=== PATIENT | female | born 1955 | race Caucasian/White ===

== ENCOUNTER → 2021-09-12 | Outpatient (CLI) | payer MEDICARE ==
[~2021-09-12] MED LIST: ASPI325T11 PO; CETI10TA74 PO; CHRM1TAB PO; CRAN400C PO; CRESTOR5 MG PO; DICY20TA PO; DULA1.5P SQ; ESTR2TAB3 PO; FLUC200T4 PO; GABA600T7 PO; GLIM4TAB8 PO; HYDR-2761 PO; MAGN250T10 PO; METF500T16 PO; NAPR220C4 PO; PIOG15TA42 PO; POTA10TA12 PO; VITA1CAP PO; ZINC50TA39 PO
[2021-09-12 13:21] LABS: BASO # 0.1 x10^3/uL (0.0-0.2); BASO % 1 % (0-3); EOS # 0.1 x10^3/uL (0.0-0.7); EOS % 1 % (0-3); HEMATOCRIT 42.4 % (36.0-47.0); HEMOGLOBIN 14.3 g/dL (12.0-15.5); LYMPH # 2.2 x10^3/uL (1.0-4.8); LYMPH % 30 % (24-48); MEAN CORPUSCULAR HEMOGLOBIN 31 pg (25-35); MEAN CORPUSCULAR HGB CONC 34 g/dL (31-37); MEAN CORPUSCULAR VOLUME 93 fL (79-100); MONO # 0.5 x10^3/uL (0.0-1.1); MONO % 6 % (0-9); NEUT # 4.6 x10^3/uL (1.8-7.7); NEUT % 62 % (31-73); PLATELET COUNT 256 x10^3/uL (140-400); RED BLOOD COUNT 4.56 x10^6/uL (3.50-5.40); RED CELL DISTRIBUTION WIDTH 13.1 % (11.5-14.5); WHITE BLOOD COUNT 7.4 x10^3/uL (4.0-11.0)
[2021-09-12 13:34] LABS: ALBUMIN 4.1 g/dL (3.4-5.0); CALCIUM 9.2 mg/dL (8.5-10.1); CREATININE 0.7 mg/dL (0.6-1.0); GFR 83.7; POTASSIUM 3.9 mmol/L (3.5-5.1)
--- NOTE | 2021-09-12 14:12 | EKG ---
[facility] [address] [place] [address] Test Date: 2021-09-12 Test Time: 14:06:51 Pat Name: MYKEL TORRES Department: Room: Gender: F Data Warehouse Specialist: : [id number] Requested By: JOSÉ RAMOS Order Number: [id number] Reading MD: Kirt Fox Measurements Intervals [place] Rate: 71 P: 39 OR: 172 QRS: -42 QRSD: 90 T: 65 QT: 382 QTc: 415 Interpretive Statements SINUS RHYTHM ABNORMAL LEFT AXIS DEVIATION T ABNORMALITY IN HIGH LATERAL LEADS ABNORMAL ECG RI6.01 No previous ECG available for comparison Electronically Signed On 09-14-2021 12:46:53 HITCH TECHNICIAN by Kirt Fox
[2021-09-13 01:13] LABS: HEMOGLOBIN A1C 9.4 % (4.8-5.6)
--- NOTE | 2021-09-13 11:30 | RAD ---
EXAM: XR CHEST 2V 09/12/2021 2:14 PM CLINICAL INDICATION: Preoperative. COMPARISON: None TECHNIQUE: PA and lateral views of the chest FINDINGS: The heart and mediastinum are normal. Lungs are well-expanded and clear. No consolidatio n, pleural effusion, or pneumothorax. Pulmonary vascularity is normal. There is multilevel degenerat debbie disc disease in the thoracic and lumbar spine. IMPRESSION: No acute cardiopulmonary abnormality. Electronically signed by: Kathleen Ortiz MD (09/13/2021 11:28 AM) [id number]
== END ==
LOC: SURGPAT 12:37
PROVIDERS: ATTEND Orthopaedic Surgery
DX: Z01.818 Encounter for other preprocedural examination (principal); R94.31 Abnormal electrocardiogram [ECG] [EKG]; M17.12 Unilateral primary osteoarthritis, left knee; M51.35 Other intervertebral disc degeneration, thoracolumbar region
CPT/HCPCS: 36415; 71046; 80048; 82040; 82306; 83036; 85025; 85610; 85651; 85730; 87641; 93005

== ENCOUNTER → 2022-01-23 | Outpatient (CLI) | payer MEDICARE ==
[~2022-01-23] MED LIST changes: +ASPI325T8 PO; -FLUC200T4 PO; +FLUC200T6 PO; +HUM100VI5 SQ; +ONDA4TAB12 PO; +OXYC5TAB88 PO
[2022-01-23 13:43] LABS: BASO # 0.1 x10^3/uL (0.0-0.2); BASO % 1 % (0-3); EOS # 0.2 x10^3/uL (0.0-0.7); EOS % 2 % (0-3); HEMATOCRIT 38.6 % (36.0-47.0); LYMPH % 29 % (24-48); MEAN CORPUSCULAR HEMOGLOBIN 31 pg (25-35); MEAN CORPUSCULAR HGB CONC 34 g/dL (31-37); MEAN CORPUSCULAR VOLUME 93 fL (79-100); MONO # 0.5 x10^3/uL (0.0-1.1); MONO % 7 % (0-9); NEUT # 4.3 x10^3/uL (1.8-7.7); NEUT % 61 % (31-73); PLATELET COUNT 249 x10^3/uL (140-400); RED BLOOD COUNT 4.15 x10^6/uL (3.50-5.40); RED CELL DISTRIBUTION WIDTH 13.6 % (11.5-14.5)
[2022-01-23 13:49] LABS: ALBUMIN 3.6 g/dL (3.4-5.0); CALCIUM 9.3 mg/dL (8.5-10.1); CREATININE 0.9 mg/dL (0.6-1.0); GFR 62.5
[2022-01-23 13:52] LABS: PROTHROMBIN TIME PATIENT 13.5 SEC (11.7-14.0)
== END ==
LOC: SURGPAT 12:43
PROVIDERS: ATTEND Orthopaedic Surgery
DX: Z01.812 Encounter for preprocedural laboratory examination (principal); M17.12 Unilateral primary osteoarthritis, left knee; M85.80 Other specified disorders of bone density and structure, unspecified site; I10 Essential (primary) hypertension; R06.02 Shortness of breath
CPT/HCPCS: 36415; 80048; 82040; 82306; 85025; 85610; 85651; 85730; 87641

== ENCOUNTER 2022-02-12 05:59 | Inpatient (IN) | payer MEDICARE ==
[2022-01-23 13:09] VITALS: BP 133/69
[~2022-02-12] VITALS: Ht 170.2 cm; Wt 96.0 kg
[2022-02-12] VITALS (12 sets, daily range): BP systolic 113–163; BP diastolic 59–92
[~2022-02-12 05:59] MED LIST changes: -ASPI325T8 PO; -ONDA4TAB12 PO; -OXYC5TAB88 PO
[2022-02-12] MEDS ORDERED: MORPHINE SULFATE 2 MG/ML INJ. IVP PRN (06:00)
[2022-02-12] MEDS ORDERED: IV RINGERS,LACTATED 1000ML 1,000 ML IV SCH (06:00)
[2022-02-12] MEDS ORDERED: TRANEXAMIC ACID 1,000 MG in IV NS 50ML -- 1ST BAG INJ ONE (06:00)
[2022-02-12] MEDS ORDERED: GABAPENTIN 300 MG CAPSULE. PO PRN (06:00)
[2022-02-12] MEDS ORDERED: PROCHLORPERAZINE 10 MG/2 ML VIAL. IVP PRN (06:00)
[2022-02-12] MEDS ORDERED: MORPHINE SULFATE 5 MG, KETOROLAC 30MG VIAL 30 MG, ROPIVacaine 0.5% PF 60 ML, EPINEPHrin... INT ART ONE (06:00)
[2022-02-12] MEDS ORDERED: MELOXICAM 7.5 MG TABLET PO PRN (06:00)
[2022-02-12] MEDS ORDERED: ACETAMINOPHEN 500 MG TABLET PO PRN (06:00)
[2022-02-12] MEDS ORDERED: fentaNYL PF VIAL 100 MCG/2 ML VIAL IVP PRN ×2 (06:00)
[2022-02-12] MEDS ORDERED: PROPOFOL 10 MG/ML (20ML) VIAL. IV ONE (06:38)
[2022-02-12] MEDS ORDERED: ROCURONIUM 50 MG/5 ML VIAL. ONE (06:40)
[2022-02-12] MEDS ORDERED: SCOPOLAMINE 1.5MG PATCH. TD ONE (06:45)
[2022-02-12] MEDS ORDERED: fentaNYL PF VIAL 100 MCG/2 ML VIAL ONE (06:47)
[2022-02-12] MEDS ORDERED: DEXAMETHASONE SOD PHOS 4 MG/ML VIAL ONE (06:54)
[2022-02-12] MEDS ORDERED: ONDANSETRON PF 4 MG/2 ML VIAL. ONE (06:54)
[2022-02-12] MEDS: INSULIN LISPRO 100 UNIT/ML 3ML VIAL for OP,RR ONLY. SQ PRN ×2 (07:06→09:46)
[2022-02-12] MEDS ORDERED: TRANEXAMIC ACID in NS IVPB 100 ML ONE (07:07)
[2022-02-12] MEDS ORDERED: INSULIN LISPRO 100 UNIT/ML 3ML VIAL for OP,RR ONLY. SQ ONE (07:10)
[2022-02-12] MEDS ORDERED: TRANEXAMIC ACID in NS IVPB 50 ML ONE (07:45)
[2022-02-12] MEDS ORDERED: SUGAMMADEX SODIUM 200 MG/2 ML VIAL. IVP ONE (08:00)
[2022-02-12] MEDS ORDERED: TRANEXAMIC ACID 1,000 MG in IV NS 50ML -- 2ND BAG INJ ONE (08:00)
[2022-02-12] MEDS ORDERED: HYDROmorphone 2 MG/ML INJ. ONE ×2 (08:05→09:24)
--- NOTE | 2022-02-12 09:04 | PDOC4 ---
OPERATIVE NOTE Date: Date: February 12, 2022 Pre-Op Diagnosis: 1. 66-year-old female severe DJD left knee Post-Op Diagnosis: 1. 66-year-old female severe DJD left knee 2. Status post left primary total knee arthroplasty Procedure Performed: 1. Primary left total knee arthroplasty Surgeon: Bennett Anesthesia Type: General Blood Loss: 50 cc Specimans Obtained: Products of left total knee arthroplasty. Complications: Patient tolerated the procedure well without any apparent intraoperative complications. Operative Note: See dictation TRISTEN LI February 12, 2022 09:04
[2022-02-12] MEDS ORDERED: 0.9 % SODIUM CHLORIDE 10 ML DISP.SYRIN. IV PRN (09:15)
[2022-02-12] MEDS: IV RINGERS,LACTATED 1000ML 1,000 ML IV SCH ×2 (09:15→22:35)
[2022-02-12] MEDS ORDERED: CALCIUM CARBONATE 500 MG TAB.CHEW PO PRN (09:15)
[2022-02-12] MEDS ORDERED: DEXTROSE 50% 25 GM / 50ML DISP.SYRIN. IV PRN (09:15)
[2022-02-12] MEDS: HYDROmorphone 2 MG/ML INJ. IVP PRN ×2 (09:28→10:01)
--- NOTE | 2022-02-12 09:43 | RAD ---
EXAM: Left knee, 2 views. HISTORY: Arthroplasty. COMPARISON: 08/30/2021 FINDINGS: 2 views of the left knee are obtained. There is a left knee arthroplasty in expected positi on. There is joint fluid and soft tissue gas due to recent surgery. IMPRESSION: Left knee arthroplasty in expected position, with surrounding soft tissue changes due to recent surgery. Electronically signed by: Amisha Donahue MD (02/12/2022 9:40 AM) [id number]
--- NOTE | 2022-02-12 10:30 | NUR ---
received from recovery. she is drowsy but responsive to commands. she has good movement and sensation bilateral lower extremities. left foot is weaker than right. dressing is clean dry and intact. son at bedside. became nauseated. wants ice chips.
[2022-02-12] MEDS: ONDANSETRON PF 4 MG/2 ML VIAL. IVP SCH ×2 (11:06→16:32)
[2022-02-12] MEDS: ONDANSETRON ODT 4 MG TAB.RAPDIS. PO SCH ×2 (11:10→11:26)
[2022-02-12] MEDS: DICYCLOMINE HCL 10 MG CAPSULE PO SCH ×3 (13:00→22:08)
--- NOTE | 2022-02-12 16:16 | OP ---
DATE OF SURGERY: 02/12/2022 PREOPERATIVE DIAGNOSIS: Severe degenerative joint disease, left knee. POSTOPERATIVE DIAGNOSIS: Severe degenerative joint disease, left knee. PROCEDURE: Left total knee arthroplasty. SURGEON: Adalberto Guajardo Jr, DO. SURGICAL NURSE PRACTITIONER: ERIK Maher. ANESTHESIA: General. COMPLICATIONS: None. ESTIMATED BLOOD LOSS: 50 mL. DESCRIPTION OF PROCEDURE: The patient was taken to the operative suite, given a general anesthetic. Left lower extremity was then prepped and draped in a sterile fashion. Incision was made through skin and subcutaneous tissues down to the extensor mechanism. Superficial bleeding was coagulated using a Bovie knife. A medial parapatellar incision was then made. After exposure, there was noted to be severe degenerative joint disease in all compartments of the knee. The patella was then everted, measured and cut to the appropriate size, which was a 29. This was measured appropriately. The drill holes were made through the guide for the component. The knee was then taken into a flexed position. Retractors were placed medially and laterally. The F1 guide was then placed on the distal femur. A drill was used for the site for the cartilage removal and then using a curved curette, the cartilage was removed from the distal femur and then the F2 guide was placed in this position. The drill was placed through the F2 guide on the medial and lateral femoral condyles and held with pins. This was also held for the distal cut on the proximal aspect of the femur anteriorly with 2 drill pins followed by a locking pin as well. The cut was then made in the distal femur. This was noted to be a good flush cut. The pins were then removed from this components trial and then the pins were placed in the femoral sites on the medial and lateral femoral condyles. The next guide was then placed on the distal femur and held flush well. Two more pins were placed and then the anterior and posterior chamfer cuts and drill holes were made at this point. Then, these guides were removed. The final femoral guide was then put in place and held appropriately where the finishing cuts were made along the femoral condyle medially and laterally and then this was removed. Attention was then directed to the tibia. The remnants of the medial and lateral menisci as well as the ACL were removed. The PCL remained completely intact at this point. After retracting medially, laterally and posteriorly, the tibial guide was placed in appropriate position and again, a curette was used to remove the remaining cartilage on the proximal tibia. Tibial guide was then held with pins, two straight pins and then one locking pin and then the cut was made for the tibia. This was released of its soft tissue and removed in its entirety and the trials were placed on the femur and tibia with a 4A tibial tray insert. As this was trialled, this was noted to be very stable throughout the arc of motion. This was stable in flexion and equal in flexion and extension throughout the arc of motion. There was no instability noted at any point. This was marked for rotation on the tibial side of the joint and after this was held with pins, the drill and the keel were placed the appropriate depth for this. This was then copiously irrigated on the back table while cement was being mixed. After this was suctioned dry, cement was placed on cut surfaces. The tibia was impacted first, followed by the femur. This was held with the trial polyethylene in extension until hardening of cement and cement was placed on the patella, which was held with a patellar clamp until hardening of cement. After excess cement was then removed, this was taken through motion. This was noted to be the best stable situation; therefore, the trials were removed and the actual medial 6 was placed and the lateral A was placed at this point. This was noted again to be stable; therefore, tourniquet was deflated. No excessive bleeding was noted. The medial parapatellar incision was then closed using the running locking barbed suture. Then, this was taken through range of motion and noted to be sealed off completely. The superficial tissues and skin were reapproximated. Sterile dressing was applied. This was all done after local was placed within the depths of the capsular region of the knee. The patient was then taken from the operative bed to the postoperative bed, taken to the PACU in stable condition. PARKER/VICTORIA DR: Priscila TID: [id number]
[2022-02-12] MEDS: SENNOSIDES/DOCUSATE 8.6/50MG TABLET. PO SCH (16:28)
[2022-02-12] MEDS: GABAPENTIN 100 MG CAPSULE. PO SCH ×2 (16:28→22:08)
[2022-02-12] MEDS: metFORMIN 500 MG TABLET PO SCH (16:28)
[2022-02-12] MEDS: oxyCODONE IR 5 MG TABLET PO PRN ×2 (16:44→22:09)
[2022-02-12] MEDS: ASPIRIN 325 MG TABLET PO SCH (22:08)
[2022-02-12] MEDS: ATORVASTATIN CALCIUM 40 MG TABLET. PO SCH (22:08)
[2022-02-12] MEDS: INSULIN NPH/REG HUM 70/30 300 UNITS/3 ML VIAL. SQ SCH (22:10)
[2022-02-13] MEDS: ONDANSETRON ODT 4 MG TAB.RAPDIS. PO SCH ×2 (00:10→05:14)
[2022-02-13] MEDS: ONDANSETRON PF 4 MG/2 ML VIAL. IVP SCH ×2 (00:10→05:14)
[2022-02-13 03:00] VITALS: BP 95/53
[2022-02-13] MEDS: oxyCODONE IR 5 MG TABLET PO PRN ×5 (03:00→21:38)
[2022-02-13] MEDS: IV RINGERS,LACTATED 1000ML 1,000 ML IV SCH ×2 (04:33→11:55)
[2022-02-13] MEDS ORDERED: MAGNESIUM HYDROXIDE 2,400 MG/30 ML ORAL.SUSP. PO PRN (06:00)
[2022-02-13] MEDS ORDERED: GABAPENTIN 100 MG CAPSULE. PO SCH (06:00)
[2022-02-13 06:31] VITALS: BP 106/64
--- NOTE | 2022-02-13 07:51 | PDOC1 ---
History and Physical Date of Service: DOS: DATE: 02/13/22 TIME: 07:51 Allergies: Allergies: Coded Allergies: sodium hypochlorite solution (Verified Allergy, Severe, CHLORINE = SHORTNESS OF AIR, 02/12/22) erythromycin base (Verified Allergy, Intermediate, Nausea and Vomiting, 02/12/22) iron (Verified Allergy, Intermediate, Hives, 02/12/22) diarrhea Current Medications: Current Medications Current Medications Fentanyl Citrate (Fentanyl 2ml Vial) 25 mcg PRN Q5MIN PRN IVP MILD PAIN 1-3; Start 02/12/22 at 06:00; Stop 02/13/22 at 05:59; Status DC Fentanyl Citrate (Fentanyl 2ml Vial) 50 mcg PRN Q5MIN PRN IVP MODERATE PAIN 4- 6; Start 02/12/22 at 06:00; Stop 02/13/22 at 05:59; Status DC Morphine Sulfate (Morphine Sulfate) 1 mg PRN Q10MIN PRN IVP SEVERE PAIN 7-10; Start 02/12/22 at 06:00; Stop 02/13/22 at 05:59; Status DC Ringer's Solution 1,000 ml @ 30 mls/hr Q24H IV Last administered on 02/12/22at 06:59; Start 02/12/22 at 06:00; Stop 02/12/22 at 17:59; Status DC Hydromorphone HCl (Dilaudid) 0.5 mg PRN Q10MIN PRN IVP SEVERE PAIN 7-10, 2nd CHOICE Last administered on 02/12/22at 10:01; Start 02/12/22 at 06:00; Stop 2 at 05:59; Status DC Prochlorperazine Edisylate (Compazine) 5 mg PACU PRN PRN IVP NAUSEA, MRX1; Start 02/12/22 at 06:00; Stop 02/13/22 at 05:59; Status DC Meloxicam (Mobic) 15 mg 1X PREOP PRN PO PRIOR TO PROCEDURE Last administered on 02/12/22at 07:00; Start 02/12/22 at 06:00; Stop 02/12/22 at 18:00; Status DC Gabapentin (Neurontin) 600 mg 1X PREOP PRN PO PRIOR TO PROCEDURE Last administered on 02/12/22at 07:00; Start 02/12/22 at 06:00; Stop 02/12/22 at 18:00; Status DC Acetaminophen (Tylenol) 1,000 mg 1X PREOP PRN PO PRIOR TO PROCEDURE Last administered on 02/12/22at 07:00; Start 02/12/22 at 06:00; Stop 02/12/22 at 18:00; Status DC Cefazolin Sodium/ Dextrose 50 ml @ 100 mls/hr 1X PREOP PRN IV PRIOR TO PROCEDURE; Start 02/12/22 at 06:00; Stop 02/12/22 at 18:00; Status DC Morphine Sulfate 5 mg/Ketorolac Tromethamine 30 mg/Ropivacaine 60 ml/Epinephrine HCl 0.5 mg/Sodium Chloride 62 ml @ 62 mls/hr 1X PERIOP ONCE INT ART Last administered on 02/12/22at 08:06; Start 02/12/22 at 06:00; Stop 02/12/22 at 06:59; Status DC Tranexamic Acid 50 ml @ 50 mls/hr 1X PERIOP ONCE INJ ; Start 02/12/22 at 06:00; Stop 02/12/22 at 06:59; Status DC Tranexamic Acid 50 ml @ 50 mls/hr 1X PERIOP ONCE INJ Last administered on 02/12/22at 08:07; Start 02/12/22 at 08:00; Stop 02/12/22 at 08:59; Status DC Insulin Human Lispro (HumaLOG VIAL for OP,RR ONLY) 0-10 units PRN Q1HR PRN SQ PER PROTOCOL Last administered on 02/12/22at 09:46; Start 02/12/22 at 06:45; Stop 02/13/22 at 06:44; Status DC Propofol (Diprivan) 200 mg STK-MED ONCE IV ; Start 02/12/22 at 06:38; Stop 02/12/22 at 06:39; Status DC Rocuronium Union (Zemuron) 50 mg STK-MED ONCE .ROUTE ; Start 02/12/22 at 06:40; Stop 02/12/22 at 06:41; Status DC Scopolamine (Transderm-Scop) 1 patch 1X ONCE TD Last administered on 02/12/22at 07:00; Start 02/12/22 at 06:45; Stop 02/12/22 at 06:54; Status DC Fentanyl Citrate (Fentanyl 2ml Vial) 100 mcg STK-MED ONCE .ROUTE ; Start 02/12/22 at 06:47; Stop 02/12/22 at 06:48; Status DC Ondansetron HCl (Zofran) 4 mg STK-MED ONCE .ROUTE ; Start 02/12/22 at 06:54; Stop 02/12/22 at 06:54; Status DC Dexamethasone Sodium Phosphate (Decadron) 4 mg STK-MED ONCE .ROUTE ; Start 02/12/22 at 06:54; Stop 02/12/22 at 06:54; Status DC Tranexamic Acid 100 ml @ As Directed STK-MED ONCE .ROUTE ; Start 02/12/22 at 07:07; Stop 02/12/22 at 07:07; Status DC Sugammadex Sodium (Bridion) 200 mg 1X ONCE IVP ; Start 02/12/22 at 08:00; Stop 02/12/22 at 08:01; Status DC Tranexamic Acid 50 ml @ As Directed STK-MED ONCE .ROUTE ; Start 02/12/22 at 07:45; Stop 02/12/22 at 07:46; Status DC Hydromorphone HCl (Dilaudid) 2 mg STK-MED ONCE .ROUTE ; Start 02/12/22 at 08:05; Stop 02/12/22 at 08:05; Status DC Morphine Sulfate (Morphine Sulfate) 2 mg PRN Q1HR PRN IVP PAIN-SEE COMMENTS; Start 02/12/22 at 09:15 Senna/Docusate Sodium (Senna Plus) 1 tab DAILY PO Last administered on 02/12/22at 16:28; Start 02/12/22 at 12:00 Magnesium Hydroxide (Milk Of Magnesia) 2,400 mg 1X PRN PRN PO CONSTIPATION; Start 02/13/22 at 06:00; Stop 02/14/22 at 05:59 Bisacodyl (Dulcolax Supp) 10 mg 1X PRN PRN [place] CONSTIPATION; Start 02/13/22 at 16:00; Stop 02/14/22 at 15:59 Calcium Carbonate/ Glycine (Tums) 500 mg PRN QID PRN PO INDIGESTION; Start 02/12/22 at 09:15 Sodium Chloride (Normal Saline Flush) 10 ml QSHIFT PRN IV AFTER MEDS AND BLOOD DRAWS; Start 02/12/22 at 09:15 Acetaminophen (Tylenol) 1,000 mg Q6H PO ; Start 02/13/22 at 09:00 Gabapentin (Neurontin) 100 mg Q8HRS PO ; Start 02/13/22 at 06:00; Status Cancel Ondansetron HCl (Zofran) 4 mg Q6HRS IVP Last administered on 02/12/22at 16:32; Start 02/12/22 at 12:00; Stop 02/13/22 at 06:01; Status DC Ondansetron HCl (Zofran Odt) 4 mg Q6HRS PO ; Start 02/12/22 at 12:00; Stop 02/13/22 at 06:01; Status DC Oxycodone HCl (Roxicodone) 5 mg PRN Q4HRS PRN PO Pain score 4-6 Last administered on 02/13/22at 03:00; Start 02/12/22 at 09:15 Dextrose (Dextrose 50%-Water Syringe) 12.5 gm PRN Q15MIN PRN IV SEE COMMENTS; Start 02/12/22 at 09:15 Cefazolin Sodium/ Dextrose 50 ml @ 100 mls/hr Q6H IV Last administered on 02/13/22at 04:07; Start 02/12/22 at 13:00; Stop 02/13/22 at 04:29; Status DC Ringer's Solution 1,000 ml @ 75 mls/hr [id number] IV Last administered on 02/13/22at 04:33; Start 02/12/22 at 09:15 Aspirin (Miryam Aspirin) 325 mg BID PO Last administered on 02/12/22at 22:08; Start 02/12/22 at 21:00 Hydromorphone HCl (Dilaudid) 2 mg STK-MED ONCE .ROUTE ; Start 02/12/22 at 09:24; Stop 02/12/22 at 09:25; Status DC Aspirin (Ecotrin) 325 mg DAILY PO ; Start 02/13/22 at 09:00 Cetirizine HCl (ZyrTEC) 10 mg DAILY PO ; Start 02/13/22 at 09:00 Insulin Human Isoph/Insulin Regular (HumuLIN 70-30 VIAL) 25 units BID SQ Last administered on 02/12/22at 22:10; Start 02/12/22 at 21:00 Metformin HCl (Glucophage) 500 mg BIDWMEALS PO Last administered on 02/12/22at 16:28; Start 02/12/22 at 17:00 Pioglitazone HCl (Actos) 15 mg DAILY PO ; Start 02/13/22 at 09:00 Potassium Chloride (Klor-Con) 10 meq DAILY PO ; Start 02/13/22 at 09:00 Dicyclomine HCl (Bentyl) 20 mg QID PO Last administered on 02/12/22at 22:08; Start 02/12/22 at 13:00 Estradiol (Estrace) 2 mg DAILY PO ; Start 02/13/22 at 09:00 Gabapentin (Neurontin) 100 mg TID PO Last administered on 02/12/22at 22:08; Start 02/12/22 at 14:00 Glimepiride (Amaryl) 4 mg DAILY PO ; Start 02/13/22 at 09:00 Magnesium Oxide (Magnesium Oxide) 400 mg DAILY PO ; Start 02/13/22 at 09:00 Atorvastatin Calcium (Lipitor) 40 mg QHS PO Last administered on 02/12/22at 22:08; Start 02/12/22 at 21:00 Vitamin B Complex (Deshawn B) 1 tab DAILY PO ; Start 02/13/22 at 09:00 Cefazolin Sodium/ Dextrose 50 ml @ 100 mls/hr 1X ONCE IV Last administered on 02/12/22at 16:00; Start 02/12/22 at 16:00; Stop 02/12/22 at 16:29; Status DC Active Scripts Active Reported Novolin 70-30 100 Unit/Ml Vial (Hum Insulin Nph/Reg Insulin Hm) 100 Unit/1 Ml Vial 25 Unit SQ BID Hydrocodone-Apap 5-325 (Hydrocodone Bit/Acetaminophen) 1 Tab Tablet 1 Tab PO PRN Q6HRS PRN Crestor (Rosuvastatin Calcium) 5 Mg Tablet 10 Mg PO HS Actos (Pioglitazone Hcl) 15 Mg Tablet 1 Tab PO DAILY 30 Days Metformin Hcl 500 Mg Tablet 500 Mg PO BIDWMEALS Estradiol 2 Mg Tablet 1 Tab PO DAILY Glimepiride 4 Mg Tablet 1 Tab PO DAILY Gabapentin 600 Mg Tablet 100 Mg PO TID Fluconazole 200 Mg Tablet 1 Tab PO Q3DAYS Dicyclomine Hcl 20 Mg Tablet 1 Tab PO QID Zyrtec (Cetirizine Hcl) 10 Mg Tablet 1 Tab PO DAILY Zinc 50 Mg Tablet 1 Tab PO DAILY 30 Days Klor-Con 10 (Potassium Chloride) 10 Meq Tablet.er 1 Tab PO DAILY 30 Days Magnesium (Magnesium Oxide) 250 Mg Tablet 250 Mg PO DAILY Cranberry 400 Mg Capsule 4,200 Mg PO DAILY Vitamin B Complex 1 Each Capsule 1 Cap PO DAILY Apple Cider Vinegar Plus Tb (Chrm/Marge/ Bt-Org Peel/Gr T) 1 Each Tablet 1 Tab PO DAILY Aspirin Ec (Aspirin) 325 Mg Tablet. 1 Tab PO DAILY Aleve (Naproxen Sodium) 220 Mg Capsule 220 Mg PO BID PRN ROS: Review of Systems Review of System REVIEW OF SYSTEMS: GENERAL: Denies weakness SKIN: No bruising, hair changes or rashes. EYES: No blurred, double or loss of vision. NOSE AND THROAT: No history of nosebleeds, hoarseness or sore throat. HEART: No history of palpitations, chest pain or shortness of breath on exertion. LUNGS: Denies cough, hemoptysis, wheezing or shortness of breath. GASTROINTESTINAL: Denies changes in appetite, nausea, vomiting, diarrhea or constipation. GENITOURINARY: No history of frequency, urgency, hesitancy or nocturia. NEUROLOGIC: Denies history of numbness, tingling, or tremor. PSYCHIATRIC: No history of panic, anxiety or depression. ENDOCRINE: No history of heat or cold intolerance, polyuria or polydipsia. EXTREMITIES: Denies joint pain, pain on walking or stiffness. Physical Exam: Vital Signs: Vital Signs Date Time Temp Pulse Resp B/P (MAP) Pulse Ox O2 Delivery O2 Flow Rate FiO2 02/13/22 06:31 98.9 73 16 106/64 (78) 96 Room Air 98.9 02/12/22 22:39 2.0 Physcial Exam: GEN: No apparent distress. Alert and oriented HEENT: Normal cephalic, atraumatic, external auditory canals are patent EYES: Extraocular muscles are intact, pupil are equally round and reactive to light and accommodation MUSCULOSKELETAL: Well developed , well nourished, good range of motion ENDOCRINE: No thyromegaly was palpated LYMPHATICS: No cervical chain or axillary nodes were noted HEMATOPOIETIC: No bruising NECK: Supple, no JVD, no thyromegaly was noted LUNGS: Clear to auscultation in all lung hernandez without rhonchi or wheezing HEART: RRR, S!, S2 present. Peripheral pulses intact, no obvious murmurs noted ABDOMEN: Soft, nontender. Positive bowel sounds, no organomegaly, normal bowel sounds EXTREMITIES: Without clubbing, cyanosis, or edema. Pedal pulses intact. Negative Homans sign NEUROLOGIC: Normal speech and tone. A&O x 3, moves all extremities, no obvious focal deficits PSYCHIATRIC: Normal affect, normal mood. Stable SKIN: No ulcerations or rashes, good skin turgor, no jaundice VASCULAR: Good capillary refill, neurovascular bundle appears to be intact Labs: Labs: Laboratory Tests Test 02/12/22 06:30 02/12/22 06:48 02/12/22 09:34 02/12/22 12:13 POC SARS CoV-2 Antigen Negative (NEGATIVE) Glucose (Fingerstick) 166 mg/dL (70-99) 187 mg/dL (70-99) 205 mg/dL (70-99) Test 02/12/22 16:51 02/12/22 20:18 02/13/22 06:22 Glucose (Fingerstick) 235 mg/dL (70-99) 258 mg/dL (70-99) 196 mg/dL (70-99) Laboratory Tests Test 02/12/22 09:34 02/12/22 12:13 02/12/22 16:51 02/12/22 20:18 Glucose (Fingerstick) 187 mg/dL (70-99) 205 mg/dL (70-99) 235 mg/dL (70-99) 258 mg/dL (70-99) Test 02/13/22 06:22 Glucose (Fingerstick) 196 mg/dL (70-99) Justifications for Admission Other Justification AVELINA SANCHEZ MD February 13, 2022 07:51
--- NOTE | 2022-02-13 08:16 | PDOC ---
PROGRESS NOTES Date of Service DATE: 02/13/22 TIME: 08:12 Subjective Subjective POD #1 s/p L TKA Patient was seen and examined this morning at bedside. Awake and alert sitting upright in bed. Reports some discomfort to the left knee postoperatively. Currently controlled with pain medication regimen. Denies chest pain or shortness of breath. No abdominal pain or discomfort. Tolerating p.o. intake postoperatively. 1700 on IS. Patient has not yet had a bowel movement. Does report passing flatus. No acute events overnight. Objective Vital Signs Vital Signs Date Time Temp Pulse Resp B/P (MAP) Pulse Ox O2 Delivery O2 Flow Rate FiO2 02/13/22 06:31 98.9 73 16 106/64 (78) 96 Room Air 98.9 02/12/22 22:39 2.0 Physical Exam Orthopedic examination of the left knee: Skin is warm and dry. Surgical dressings intact. No drainage or discharge noted. Compartments are soft and distensible. Cap refill brisk. Left lower extremity is warm and well-perfused. Sensation to light touch intact throughout all dermatomes. Wiggles all toes on command. EHL/FHL intact. Plantarflexion/dorsiflexion intact. Calf nontender. No pain with passive stretch. Negative Homans' sign. No evidence of thrombus. Labs Laboratory Tests Test 02/12/22 06:30 02/12/22 06:48 02/12/22 09:34 02/12/22 12:13 POC SARS CoV-2 Antigen Negative (NEGATIVE) Glucose (Fingerstick) 166 mg/dL (70-99) 187 mg/dL (70-99) 205 mg/dL (70-99) Test 02/12/22 16:51 02/12/22 20:18 02/13/22 06:22 Glucose (Fingerstick) 235 mg/dL (70-99) 258 mg/dL (70-99) 196 mg/dL (70-99) Laboratory Tests Test 02/12/22 09:34 02/12/22 12:13 02/12/22 16:51 02/12/22 20:18 Glucose (Fingerstick) 187 mg/dL (70-99) 205 mg/dL (70-99) 235 mg/dL (70-99) 258 mg/dL (70-99) Test 02/13/22 06:22 Glucose (Fingerstick) 196 mg/dL (70-99) Imaging 2 view x-rays of the left knee performed postoperatively on 02/12/2022 reviewed this morning. Orthopedic hardware remains in anatomic alignment with no acute postoperative abnormalities noted. Assessment Assessment 66-year-old female primary osteoarthritis left knee * s/p L primary TKA 02/12 - Bennett * WBAT RLE * Pain control * DVT ppx (ASA 325mg BID); ASA x4 weeks on discharge for DVT ppx * Post-op abx (Cefazolin x24hrs post-op) * Encourage use of IS * Maintain surgical dressings * ICE operative extremity prn pain/discomfort * PT/OT for mobilization, gait training and fall prevention * AM labs pending * VSS * CM for discharge planning; awaiting therapy recommendations postoperatively. Patient reports having family support at home. Mobilizing well at this point postoperatively. Possibly home with home health therapy services today. * Follow-up with Ortho clinic in 1 to 2 weeks following discharge from the hospital [phone]. Justicifation of Admission Dx: Justifications for Admission: Justification of Admission Dx: Yes TRISTEN LI February 13, 2022 08:16
[2022-02-13] MEDS: GLIMEPIRIDE 2 MG TABLET. PO SCH (08:41)
[2022-02-13] MEDS: POTASSIUM CHLORIDE 10 MEQ TABLET.ER. PO SCH (08:41)
[2022-02-13] MEDS: metFORMIN 500 MG TABLET PO SCH ×2 (08:41→16:49)
[2022-02-13] MEDS: CETIRIZINE HCL 10 MG TABLET. PO SCH (08:41)
[2022-02-13] MEDS: PIOGLITAZONE 15 MG TABLET. PO SCH (08:41)
[2022-02-13] MEDS: ESTRADIOL 1 MG TABLET. PO SCH (08:43)
[2022-02-13] MEDS: ACETAMINOPHEN 500 MG TABLET PO SCH ×3 (08:44→21:38)
[2022-02-13] MEDS: VITAMIN B COMPLEX TABLET. PO SCH (08:44)
[2022-02-13] MEDS: SENNOSIDES/DOCUSATE 8.6/50MG TABLET. PO SCH (08:44)
[2022-02-13] MEDS: MAGNESIUM OXIDE 400 MG TABLET PO SCH (08:44)
[2022-02-13] MEDS: ASPIRIN 325 MG TABLET PO SCH ×2 (08:47→21:37)
[2022-02-13] MEDS ORDERED: ASPIRIN ENTERIC COATED 325 MG TABLET.DR. PO SCH (09:00)
[2022-02-13] MEDS: GABAPENTIN 100 MG CAPSULE. PO SCH ×3 (09:25→21:38)
[2022-02-13] MEDS: DICYCLOMINE HCL 10 MG CAPSULE PO SCH ×4 (09:25→21:37)
[2022-02-13] MEDS: INSULIN NPH/REG HUM 70/30 300 UNITS/3 ML VIAL. SQ SCH ×2 (09:27→17:31)
[2022-02-13] MEDS: MORPHINE SULFATE 2 MG/ML INJ. IVP PRN ×3 (10:11→18:16)
[2022-02-13 10:59] VITALS: BP 121/59
[2022-02-13] MEDS ORDERED: BISACODYL 10 MG SUPP.RECT. PR PRN (16:00)
[2022-02-13 18:17] VITALS: BP 143/80
[2022-02-13] MEDS: ATORVASTATIN CALCIUM 40 MG TABLET. PO SCH (21:38)
[2022-02-13 22:44] VITALS: BP 134/81
[2022-02-14] MEDS: IV RINGERS,LACTATED 1000ML 1,000 ML IV SCH ×2 (01:15→14:35)
[2022-02-14] MEDS: oxyCODONE IR 5 MG TABLET PO PRN ×6 (01:33→21:48)
[2022-02-14 02:52] VITALS: BP 133/80
[2022-02-14] MEDS: ACETAMINOPHEN 500 MG TABLET PO SCH ×4 (03:00→20:51)
[2022-02-14 06:48] VITALS: BP 147/82
--- NOTE | 2022-02-14 07:18 | PDOC ---
PROGRESS NOTES Date of Service DATE: 02/14/22 TIME: 07:18 Subjective Subjective POD #2 s/p L TKA Patient seen and examined this morning. Awake sitting upright in recliner eating breakfast. Reports increased pain to left knee postoperatively. Tolerating p.o. intake. No chest pain or shortness of breath. No abdominal pain. No nausea or vomiting. Working with therapy. Patient eager and anxious to get out of the hospital and go home. No acute events reported overnight. Objective Vital Signs Vital Signs Date Time Temp Pulse Resp B/P (MAP) Pulse Ox O2 Delivery O2 Flow Rate FiO2 02/14/22 06:48 98.2 81 18 147/82 (103) 95 Room Air 98.2 02/12/22 22:39 2.0 Physical Exam Orthopedic examination of the left knee: Skin is warm and dry. Surgical dressings intact. No drainage or discharge noted. Compartments are soft and distensible. Cap refill brisk. Left lower extremity is warm and well-perfused. Sensation to light touch intact throughout all dermatomes. Wiggles all toes on command. EHL/FHL intact. Plantarflexion/dorsiflexion intact. Calf nontender. No pain with passive stretch. Negative Homans' sign. No evidence of thrombus. Labs Laboratory Tests Test 02/12/22 09:34 02/12/22 12:13 02/12/22 16:51 02/12/22 20:18 Glucose (Fingerstick) 187 mg/dL (70-99) 205 mg/dL (70-99) 235 mg/dL (70-99) 258 mg/dL (70-99) Test 02/13/22 06:22 02/13/22 11:43 02/13/22 16:52 02/13/22 20:15 Glucose (Fingerstick) 196 mg/dL (70-99) 180 mg/dL (70-99) 163 mg/dL (70-99) 130 mg/dL (70-99) Test 02/14/22 06:25 Glucose (Fingerstick) 138 mg/dL (70-99) Laboratory Tests Test 02/13/22 11:43 02/13/22 16:52 02/13/22 20:15 02/14/22 06:25 Glucose (Fingerstick) 180 mg/dL (70-99) 163 mg/dL (70-99) 130 mg/dL (70-99) 138 mg/dL (70-99) Assessment Assessment 66-year-old female primary osteoarthritis left knee * s/p L primary TKA 02/12 - Bennett * WBAT RLE * Pain control * DVT ppx (ASA 325mg BID); ASA x4 weeks on discharge for DVT ppx * Post-op abx complete * Encourage use of IS * Maintain surgical dressings * ICE operative extremity prn pain/discomfort * PT/OT for mobilization, gait training and fall prevention * VSS * CM for discharge planning; stable for discharge home with home health services from an orthopedic standpoint. * Follow-up with Ortho clinic in 1 to 2 weeks following discharge from the hospital [phone]. Justicifation of Admission Dx: Justifications for Admission: Justification of Admission Dx: Yes TRISTEN LI February 14, 2022 07:18
[2022-02-14 07:39] LABS: HEMATOCRIT 34.4 % (36.0-47.0); HEMOGLOBIN 11.4 g/dL (12.0-15.5)
[2022-02-14] MEDS: GLIMEPIRIDE 2 MG TABLET. PO SCH (07:46)
[2022-02-14] MEDS: SENNOSIDES/DOCUSATE 8.6/50MG TABLET. PO SCH (07:48)
[2022-02-14] MEDS: ASPIRIN 325 MG TABLET PO SCH ×2 (07:48→20:43)
[2022-02-14] MEDS: MAGNESIUM OXIDE 400 MG TABLET PO SCH (07:48)
[2022-02-14] MEDS: metFORMIN 500 MG TABLET PO SCH ×2 (07:49→17:39)
[2022-02-14] MEDS: ESTRADIOL 1 MG TABLET. PO SCH (07:49)
[2022-02-14] MEDS: GABAPENTIN 100 MG CAPSULE. PO SCH ×2 (07:49→13:26)
[2022-02-14] MEDS: POTASSIUM CHLORIDE 10 MEQ TABLET.ER. PO SCH (07:49)
[2022-02-14] MEDS: PIOGLITAZONE 15 MG TABLET. PO SCH (07:49)
[2022-02-14] MEDS: DICYCLOMINE HCL 10 MG CAPSULE PO SCH ×4 (07:50→20:51)
[2022-02-14] MEDS ORDERED: ASPI325T8 PO (09:04)
[2022-02-14] MEDS ORDERED: ONDA4TAB12 PO (09:04)
[2022-02-14] MEDS ORDERED: OXYC5TAB88 PO (09:04)
[2022-02-14] MEDS: INSULIN NPH/REG HUM 70/30 300 UNITS/3 ML VIAL. SQ SCH ×2 (09:08→17:47)
[2022-02-14] MEDS: CETIRIZINE HCL 10 MG TABLET. PO SCH (10:49)
[2022-02-14] MEDS: VITAMIN B COMPLEX TABLET. PO SCH (10:49)
[2022-02-14 12:39] VITALS: BP 116/66
[2022-02-14 15:16] VITALS: BP 131/76
[2022-02-14 18:06] VITALS: BP 131/76
[2022-02-14] MEDS: ATORVASTATIN CALCIUM 40 MG TABLET. PO SCH (20:44)
[2022-02-14] MEDS: GABAPENTIN 300 MG CAPSULE. PO SCH (20:44)
[2022-02-15] MEDS: oxyCODONE IR 5 MG TABLET PO PRN ×4 (01:21→13:40)
[2022-02-15] MEDS: ACETAMINOPHEN 500 MG TABLET PO SCH ×2 (03:00→10:16)
[2022-02-15] MEDS: IV RINGERS,LACTATED 1000ML 1,000 ML IV SCH (03:55)
[2022-02-15 04:47] LABS: HEMATOCRIT 32.6 % (36.0-47.0); HEMOGLOBIN 11.1 g/dL (12.0-15.5)
[2022-02-15 06:31] VITALS: BP 117/69
--- NOTE | 2022-02-15 06:32 | NUR ---
C/o knee pain that's 03/16. Herminia 2 tabs given po. Saline lock DC'd. Assisted to recliner. Walks flat footed on left side.
[2022-02-15] MEDS ORDERED: MAGNESIUM HYDROXIDE 2,400 MG/30 ML ORAL.SUSP. PO PRN (07:00)
--- NOTE | 2022-02-15 07:30 | NUR ---
feels nauseated. emesis of approx 300 cc yellow/brown (coffee) liquid. hasn't had a BM in 3 days; medicated with Milk of Magnesia.
[2022-02-15] MEDS: INSULIN NPH/REG HUM 70/30 300 UNITS/3 ML VIAL. SQ SCH (08:00)
--- NOTE | 2022-02-15 09:01 | PDOC ---
PROGRESS NOTES Date of Service DATE: 02/15/22 TIME: 08:59 Subjective Subjective POD #3 s/p L TKA Patient seen and examined this afternoon. Awake sitting upright in bed watching TV. Very pleasant. Conversational. Reports pain controlled. Patient did have an episode of nausea with emesis this morning however this is subsequently resolved. Mobilizing with therapy. Eager and anxious to be discharged home. Objective Vital Signs Vital Signs Date Time Temp Pulse Resp B/P (MAP) Pulse Ox O2 Delivery O2 Flow Rate FiO2 02/15/22 07:12 Room Air 02/15/22 06:49 20 02/15/22 06:31 98.1 78 117/69 (85) 93 98.1 02/12/22 22:39 2.0 Physical Exam Orthopedic examination of the left knee: Skin is warm and dry. Surgical dressings intact. No drainage or discharge noted. Compartments are soft and distensible. Cap refill brisk. Left lower extremity is warm and well-perfused. Sensation to light touch intact throughout all dermatomes. Wiggles all toes on command. EHL/FHL intact. Plantarflexion/dorsiflexion intact. Calf nontender. No pain with passive stretch. Negative Homans' sign. No evidence of thrombus. Labs Laboratory Tests Test 02/13/22 11:43 02/13/22 16:52 02/13/22 20:15 02/14/22 06:25 Glucose (Fingerstick) 180 mg/dL (70-99) 163 mg/dL (70-99) 130 mg/dL (70-99) 138 mg/dL (70-99) Test 02/14/22 07:20 02/14/22 12:25 02/14/22 17:16 02/15/22 03:35 Hemoglobin 11.4 g/dL (12.0-15.5) 11.1 g/dL (12.0-15.5) Hematocrit 34.4 % (36.0-47.0) 32.6 % (36.0-47.0) Mean Corpuscular Hemoglobin Concent 33 g/dL (31-37) 34 g/dL (31-37) Glucose (Fingerstick) 144 mg/dL (70-99) 153 mg/dL (70-99) Test 02/15/22 06:53 Glucose (Fingerstick) 139 mg/dL (70-99) Laboratory Tests Test 02/14/22 12:25 02/14/22 17:16 02/15/22 03:35 02/15/22 06:53 Glucose (Fingerstick) 144 mg/dL (70-99) 153 mg/dL (70-99) 139 mg/dL (70-99) Hemoglobin 11.1 g/dL (12.0-15.5) Hematocrit 32.6 % (36.0-47.0) Mean Corpuscular Hemoglobin Concent 34 g/dL (31-37) Assessment Assessment 66-year-old female primary osteoarthritis left knee * s/p L primary TKA 02/12 - [facility] * WBAT RLE * Pain control * DVT ppx (ASA 325mg BID); ASA x4 weeks on discharge for DVT ppx * Post-op abx complete * Encourage use of IS * Maintain surgical dressings * ICE operative extremity prn pain/discomfort * PT/OT for mobilization, gait training and fall prevention * Hgb 11.1 post op 02/15 * VSS * CM for discharge planning; stable for discharge home with home health services from an orthopedic standpoint. Patient to be discharged home with home health services today. * Follow-up with Ortho clinic in 1 to 2 weeks following discharge from the hospital [phone]. Justicifation of Admission Dx: Justifications for Admission: Justification of Admission Dx: Yes TRISTEN LI February 15, 2022 09:01
[2022-02-15] MEDS: ESTRADIOL 1 MG TABLET. PO SCH (10:15)
[2022-02-15] MEDS: ASPIRIN 325 MG TABLET PO SCH (10:15)
[2022-02-15] MEDS: SENNOSIDES/DOCUSATE 8.6/50MG TABLET. PO SCH (10:16)
[2022-02-15] MEDS: MAGNESIUM OXIDE 400 MG TABLET PO SCH (10:16)
[2022-02-15] MEDS: metFORMIN 500 MG TABLET PO SCH (10:16)
[2022-02-15] MEDS: VITAMIN B COMPLEX TABLET. PO SCH (10:16)
[2022-02-15] MEDS: CETIRIZINE HCL 10 MG TABLET. PO SCH (10:17)
[2022-02-15] MEDS: POTASSIUM CHLORIDE 10 MEQ TABLET.ER. PO SCH (10:17)
[2022-02-15] MEDS: GABAPENTIN 300 MG CAPSULE. PO SCH ×2 (10:17→13:39)
[2022-02-15] MEDS: PIOGLITAZONE 15 MG TABLET. PO SCH (10:17)
[2022-02-15] MEDS: GLIMEPIRIDE 2 MG TABLET. PO SCH (10:17)
[2022-02-15] MEDS: DICYCLOMINE HCL 10 MG CAPSULE PO SCH ×2 (10:22→13:39)
--- NOTE | 2022-02-15 11:50 | SNU/HH DC ---
DISCHARGE WITH HOME HEALTH DISCHARGE INFORMATION: Condition on Discharge: Stable CODE STATUS: Code Status: Full HOME HEALTH: Face to Face: I certify this patient is under my care and that I, or a nurse practitioner or physician's student assistant working with me, had a face to face encounter that meets the physician face to face encounter requirements with this patient on []. Medical Complications: DJD Intermediate For: Assess & Educate Safety RN For Eval/Treatment: Yes Physical Therapy For: Evalulation/Treatment Occupational Therapy For: Evaluation/Treatment Home Health Aide For: Self-care AGED OR DISABLED CARER For: Community Resources Pt Meets Homebound Status: Poor coordination w/ amb. POST DISCHARGE ORDERS: DIET AFTER DISCHARGE: Cardiac CERTIFICATION STATEMENT: Certification Statement: Certification Statement: Based on the above finding, I certify that this patient is confined to the home and needs intermittent residential care, physical therapy and/or speech therapy, or continues to need occupational therapy.~ This patient is under my care, and I have initiated the establishment of the plan of care.~ This patient will be followed by myself or a community physician who will periodically review the plan of care. Home Meds Active Scripts Oxycodone HCl (Roxicodone) 5 Mg Tablet, 5 MG PO PRN Q4HRS PRN for PAIN, #28 TAB 0 Refills Prov:TRISTEN LI 02/14/22 Reported Medications Hum Insulin Nph/Reg Insulin Hm (NOVOLIN 70-30 100 UNIT/ML VIAL) 100 Unit/1 Ml Vial, 25 UNIT SQ BID for diabetes, EACH 01/23/22 Hydrocodone Bit/Acetaminophen (HYDROCODONE-APAP 5-325 ) 1 Tab Tablet, 1 TAB PO PRN Q6HRS PRN for PAIN, TAB 0 Refills 09/12/21 Rosuvastatin Calcium (CRESTOR) 5 Mg Tablet, 10 MG PO HS for FOR CHOLESTEROL, #30 TAB 0 Refills 09/12/21 Pioglitazone Hcl (ACTOS) 15 Mg Tablet, 1 TAB PO DAILY for diabetes for 30 Days, #30 TAB 0 Refills 09/12/21 Metformin Hcl (METFORMIN HCL) 500 Mg Tablet, 500 MG PO BIDWMEALS for ANTI-DIAB ETIC, TAB 0 Refills 09/12/21 Estradiol (ESTRADIOL) 2 Mg Tablet, 1 TAB PO DAILY for hormone replacement, #90 TAB 1 Refill 09/12/21 Glimepiride (GLIMEPIRIDE) 4 Mg Tablet, 1 TAB PO DAILY for diabetes, #30 TAB 5 Refills 09/12/21 Gabapentin (GABAPENTIN) 600 Mg Tablet, 100 MG PO TID for NEUROGENIC PAIN, TAB 09/12/21 Fluconazole (FLUCONAZOLE) 200 Mg Tablet, 1 TAB PO Q3DAYS for uti's, #14 TAB 09/12/21 Dicyclomine Hcl (DICYCLOMINE HCL) 20 Mg Tablet, 1 TAB PO QID for ibsd, #120 TAB 09/12/21 Cetirizine Hcl (ZYRTEC) 10 Mg Tablet, 1 TAB PO DAILY for allergies, #30 TAB 2 Refills 09/12/21 Zinc (ZINC) 50 Mg Tablet, 1 TAB PO DAILY for supplement for 30 Days, #30 TAB 0 Refills 09/12/21 Potassium Chloride (KLOR-CON 10) 10 Meq Tablet.er, 1 TAB PO DAILY for supplement for 30 Days, #30 TAB 0 Refills 09/12/21 Magnesium Oxide (MAGNESIUM) 250 Mg Tablet, 250 MG PO DAILY for supplement, TAB 09/12/21 Cranberry (CRANBERRY) 400 Mg Capsule, 4200 MG PO DAILY for supplement, CAP 09/12/21 Vitamin B Complex (VITAMIN B COMPLEX) 1 Each Capsule, 1 CAP PO DAILY for vitami n, CAP 09/12/21 Chrm/Marge/ Bt-Org Peel/Gr T (APPLE CIDER VINEGAR PLUS TB) 1 Each Tablet, 1 TAB PO DAILY for arthritis, TAB 09/12/21 Aspirin (ASPIRIN EC) 325 Mg Tablet.dr, 1 TAB PO DAILY for heart, #30 TAB 5 Refi lls 09/12/21 Naproxen Sodium (ALEVE) 220 Mg Capsule, 220 MG PO BID PRN for PAIN, CAP 09/12/21 BLAS LOO III DO February 15, 2022 11:50
--- NOTE | 2022-02-15 15:00 | NUR ---
Sobeida is feeling better. she wants to go home after therapy. medications given.
--- NOTE | 2022-02-15 15:30 | NUR ---
resting in recliner. awaiting her ride. reviewed discharge instructions; including restrictions to activities of daily living, new medications and medications to take tonight, follow up with Dr. Guajardo and Appl. we also discussed incisional care and LOIDA care. she verbalized understanding of these instructions. Addendum: 02/15/22 at 1709 by DON BROWNING RN dismissed to home. home with son and all belongings
== END 2022-02-15 16:15 | disposition home health service (06) | DRG 470 ==
LOC: SURG 05:59 → 4 SOUTHEST 09:11 → OBSVTOIN 02-14 10:00
PROVIDERS: ADMIT Orthopaedic Surgery; ATTEND Orthopaedic Surgery
PROC: 0SRD0J9 Replacement of Left Knee Joint with Synthetic Substitute, Cemented, Open Approach (ICD-10-PCS; principal; 2022-02-12 07:30)
DX: M17.12 Unilateral primary osteoarthritis, left knee (principal); Z20.822 Contact with and (suspected) exposure to COVID-19; Z79.899 Other long term (current) drug therapy
CPT/HCPCS: 36415; 73560; 82962; 85014; 85018; 86850; 86900; 86901; 88305; 88311; A4213; A4930; A6253; A6258; A6450; A6550; C1713; C1776; G0378; G0379; J0171; J0690; J1100; J1170; J1815; J1885; J2270; J2405; J2704; J2795; J3010; J3490; J7120; 97116-GP; 97150-GP; 97530-GO; 97530-GP; 97535-GO